=== PATIENT | male | born 2000 | race Caucasian/White ===

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

== ENCOUNTER 2023-03-05 00:33 | Emergency (ER) | payer OTHER ==
[~2023-03-05] VITALS: Ht 167.6 cm; Wt 77.0 kg
[~2023-03-05 00:33] MED LIST changes: +ZOFRAN4 M1 PO
[2023-03-05] MEDS ORDERED: AMOX/K CLAV875 M1 PO (00:38)
[2023-03-05 01:19] VITALS: BP 134/77
== END 2023-03-05 01:25 | disposition home or self-care (01) | DRG 153 ==
LOC: ED 00:33
DX: J02.0 Streptococcal pharyngitis (principal); Z20.822 Contact with and (suspected) exposure to COVID-19

== ENCOUNTER 2023-08-11 12:13 | Emergency (ER) | payer OTHER ==
[~2023-08-11] VITALS: Ht 172.7 cm; Wt 84.8 kg
[~2023-08-11 12:13] MED LIST changes: +AMOX/K CLAV875 M1 PO
[2023-08-11 12:51] VITALS: BP 113/70
[2023-08-11 13:00] VITALS: BP 119/77
[2023-08-11] MEDS ORDERED: ERYTHROMYCIN OPTHALMIC 5 MG/GM TUBE OS ONE (13:10)
[2023-08-11] MEDS ORDERED: FLUORESCEIN SODIUM 1 MG EA OS ONE (13:10)
[2023-08-11 13:15] VITALS: BP 110/76
[2023-08-11] MEDS ORDERED: TRAMADOL HYDROC50 M1 PO (13:15)
[2023-08-11] MEDS ORDERED: traMADol HCL 50 MG/TAB PO ONE (13:15)
[2023-08-11] MEDS ORDERED: ERYTHROMYCIN O3.5 GM OS (13:15)
[2023-08-11 13:31] VITALS: BP 119/77
== END 2023-08-11 13:37 | disposition home or self-care (01) | DRG 125 ==
LOC: ED 12:13
DX: S05.02XA Injury of conjunctiva and corneal abrasion without foreign body, left eye, initial encounter (principal); X58.XXXA Exposure to other specified factors, initial encounter